=== PATIENT | male | born 1960 | race Caucasian/White ===

== ENCOUNTER 2018-03-26 15:29 | Emergency (ER) | payer OTHER ==
[~2018-03-26] VITALS: Ht 177.8 cm; Wt 99.8 kg
--- NOTE | 2018-03-27 18:22 | EKG ---
[facility] [address] [facility] [place] [address] Signed Normal sinus rhythm Nonspecific intraventricular block Abnormal ECG No previous ECGs available Confirmed by JOSE EDUARDO TABARES MD ([id number] on 03/27/2018 6:22:26 PM Electronically Signed By: JOSE EDUARDO TABARES MD 03/27/18 [id number] PATIENT NAME: DADA AIKEN Electrocardiogram DATE OF : 62 PHYSICIAN: JOSE EDUARDO TABARES MD REPORT #: [id number] REPORT IS CONFIDENTIAL AND NOT TO BE RELEASED WITHOUT AUTHORIZATION
== END 2018-03-26 17:57 | disposition home or self-care (01) ==
LOC: ED 15:29
DX: R55 Syncope and collapse (principal); Z88.5 Allergy status to narcotic agent
CPT/HCPCS: 80053; 85025; 93005; 93010; 96361; 96374; 99284; J2405; J7030